=== PATIENT | female | born 1945 | race Hispanic/Latino ===

== ENCOUNTER → 2019-04-09 | Outpatient (CLI) | payer MEDICARE ==
--- NOTE | 2019-04-09 14:44 | Diagnostic Imaging Report ---
EXAMINATION: CHEST 2 VIEWS INDICATION: Pre-operative COMPARISON: None FINDINGS: LINES/TUBES:None LUNGS:The lungs are well-inflated. No focal consolidation or pulmonary edema. PLEURA:No pleural effusion or pneumothorax. MEDIASTINUM:The cardiomediastinal silhouette appears normal in size and shape. Atherosclerotic calcifications of the thoracic aorta. BONES/SOFT TISSUES:No acute osseous injury. ABDOMEN:No free air under the diaphragm. IMPRESSION: No focal pneumonia or pulmonary edema. Signed by: Milan Ardon MD on 04/09/2019 2:41 PM
== END ==
LOC: RAD 13:06
PROVIDERS: ATTEND Family Medicine
DX: Z01.818 Encounter for other preprocedural examination (principal); M17.11 Unilateral primary osteoarthritis, right knee
CPT/HCPCS: 71046; 93005

== ENCOUNTER 2019-05-21 11:01 | Observation (INO) | payer MEDICARE ==
[2019-05-19 10:51] LABS: BASOPHILS % 0.5 % (0.0-1.0); EOSINOPHILS # (AUTO) 0.1 (0.0-0.4); EOSINOPHILS % 1.1 % (0.0-6.0); HEMATOCRIT 41.2 % (34.2-44.1); HEMOGLOBIN 13.7 g/dL (12.0-16.0); LYMPHOCYTES # (AUTO) 1.8 (1.0-3.2); LYMPHOCYTES % 21.6 % (18.0-39.1); MEAN CORPUSCULAR HEMOGLOBIN 28.7 pg (28-32); MEAN CORPUSCULAR HGB CONC 33.3 g/dL (31-35); MEAN CORPUSCULAR VOLUME 86.4 fL (81-99); MONOCYTES # (AUTO) 0.8 (0.2-0.8); MONOCYTES % 9.9 % (4.4-11.3); NEUTROPHILS # (AUTO) 5.6 (2.1-6.9); NEUTROPHILS % 66.7 % (38.7-80.0); PLATELET COUNT 327 x10e3/uL (140-360); RED BLOOD COUNT 4.77 x10e6/uL (3.6-5.1); RED CELL DISTRIBUTION WIDTH 13.4 % (11.7-14.4)
[2019-05-19 10:56] LABS: BILIRUBIN,URINE NEGATIVE (NEGATIVE); CLARITY,URINE CLEAR (CLEAR); COLOR,URINE YELLOW (YELLOW); KETONES,URINE NEGATIVE (NEGATIVE); LEUKOCYTE ESTERASE ,URINE NEGATIVE (NEGATIVE); NITRITE,URINE NEGATIVE (NEGATIVE); PROTEIN,URINE DIPSTICK NEGATIVE (NEGATIVE); URINE UROBILINOGEN 0.2 mg/dL (0.2 - 1)
--- NOTE | 2019-05-19 11:17 | Diagnostic Imaging Report ---
EXAMINATION: CHEST 2 VIEWS INDICATION: Pre-operative COMPARISON: Chest 04/09/2019 FINDINGS: LINES/TUBES:None LUNGS:The lungs are well-inflated. No focal consolidation or pulmonary edema. PLEURA:No pleural effusion or pneumothorax. MEDIASTINUM:The cardiomediastinal silhouette appears unchanged in size and shape. BONES/SOFT TISSUES:No acute osseous injury. ABDOMEN:No free air under the diaphragm. IMPRESSION: No focal pneumonia or pulmonary edema. Signed by: Milan Ardon MD on 05/19/2019 11:14 AM
[2019-05-19 11:21] LABS: ANION GAP 14.4 mmol/L (8-16); BLOOD UREA NITROGEN 11 mg/dL (7-26); BUN/CREATININE RATIO 17 (6-25); CALCIUM 9.8 mg/dL (8.4-10.2); CARBON DIOXIDE 24 mmol/L (22-29); CHLORIDE 99 mmol/L (98-107); CREATININE, SERUM 0.64 mg/dL (0.57-1.11); EST GLOMERULAR FILTRATION RATE > 60 ML/MIN (60-); GLUCOSE 94 mg/dL (74-118); POTASSIUM 3.4 mmol/L (3.5-5.1); SODIUM 134 mmol/L (136-145)
--- OUTSIDE RECORDS SUMMARY | 2019-05-20 11:20 | XMS REPORT ---
Author Author [facility] Address Unknown Phone Unavailable Care Team Providers Care Aircraft Maintenance Technician Name Role Phone TAL TORRES Unavailable Unavailable MAURICIO SWANSON Unavailable Unavailable Problems This patient has no known problems. Allergies, Adverse Reactions, Alerts This patient has no known allergies or adverse reactions. Medications This patient has no known medications. Results Test Description Test Time Test Comments Text Results Atomic Results Result Comments CHEST 2 VIEWS 2019-05-19 11:13:00 [place] [address] Patient Name: JOHNNY HERNANDEZ MR #: [id number] : 1945 Age/Sex: 73/F Req #: [id number] Adm Physician: Ordered by: TAL TORRES MD Report #: [id number] Location: OR Room/Bed: Procedure: [id number] DX/CHEST 2 VIEWS Exam Date: 05/19/19 Exam Time: 1045 REPORT STATUS: Signed EXAMINATION: CHEST 2 VIEWS INDICATION: Pre-operative COMPARISON: Chest 04/09/2019 FINDINGS: LINES/TUBES:None LUNGS:The lungs are well-inflated. No focal consolidation or pulmonary edema. PLEURA:No pleural effusion or pneumothorax. MEDIASTINUM:The cardiomediastinal silhouette appears unchanged in size and shape. BONES/SOFT TISSUES:No acute osseous injury. ABDOMEN:No free air under the diaphragm. IMPRESSION: No focal pneumonia or pulmonary edema. Signed by: Rubina Valadez MD on 05/19/2019 11:14 AM Dictated By: RUBINA VALADEZ MD 13 Transcribed By: EVER on 05/19/191113 COPY TO: TAL TORRES MD CHEST 2 VIEWS 2019-04-09 14:40:00 [facility] [address] [place] [address] Patient Name: JOHNNY HERNANDEZ MR #: [id number] : 1945 Age/Sex: 73/F Req #: [id number] Adm Physician: Ordered by: MAURICIO SWANSON MD Report #: [id number] Location: [facility] Room/Bed: Procedure: [id number] DX/CHEST 2 VIEWS Exam Date: 04/09/19 Exam Time: 1340 REPORT STATUS: Signed EXAMINATION: CHEST 2 VIEWS INDICATION: Pre-operative COMPARISON: None FINDINGS: LINES/TUBES:None LUNGS:The lungs are well-inflated. No focal consolidation or pulmonary edema. PLEURA:No pleural effusion or pneumothorax. MEDIASTINUM:The cardiomediastinal silhouette appears normal in size and shape. Atherosclerotic calcifications of the thoracic aorta. BONES/SOFT TISSUES:No acute osseous injury. ABDOMEN:No free air under the diaphragm. IMPRESSION: No focal pneumonia or pulmonary edema. Signed by: Rubina Valadez MD on 04/09/2019 2:41 PM Dictated By: RUBINA VALADEZ MD 144 Transcribed By: EVER on 04/09/191440 COPY TO: MAURICIO SWANSON MD SCR [facility] BILATERAL ELVIS CAD DIGITAL 2019-03-18 09:08:46 - SCR MAMM BILATERAL ELVIS CAD DIGITALBILATERAL DIGITAL SCREENING MAMMOGRAM 3D/2D WITH CAD: 03/18/2019CLINICAL: Asymptomatic. Digital breast tomosynthesis was performed in addition to routine CC and MLO views. Current mammographic images were evaluated by either a dooyoo M-Vu or a Somewhere ImageChecker CAD (computer aided detection system). Comparison is made to exams dated 11/27/2017 mammogram - [facility]- and 05/22/2016 mammogram - [facility]. There are scattered fibroglandular tissues in both breasts. No suspicious mass, architectural distortion, malignant type calcification, or lymph node abnormality detected. Breast architecture is stable compared to prior exams.IMPRESSION: NEGATIVEThere is no mammographic evidence of malignancy. Resume annual screening mammography in one year. Tahira connolly/bellorad:03/18/2019 09:08:46 Attending Technologist: Mounika MONAE, [facility]-Imaging Technologist: Fatuma MONAE, [facility]-letter sent: BIRADS 1-2 Normal Mammogram BI-RADS: 1 Negative
[~2019-05-21] VITALS: Ht 147.3 cm; Wt 72.6 kg
[~2019-05-21 11:01] MED LIST: ACETAMINOPHEN325 M1 PO; CEFAZOLIN SOD 1 GM/NS 50ML 50 ML IV ONE; GLUCOSAMINE HC500 MG PO; HYDROCHLOROTHIA25 MG PO; LOSARTAN POTASS25 MG PO; SIMVASTATIN20 MG PO; VESICARE5 MG PO
[2019-05-21] MEDS ORDERED: CEFAZOLIN SOD 1 GM/NS 50ML 100 ML IV ONE (11:46)
[2019-05-21] MEDS ORDERED: DIPHENHYDRAMINE HCL INJ 50 MG/ML VIAL IM/IV PRN (16:00)
[2019-05-21] MEDS ORDERED: ONDANSETRON HCL INJ 2MG/ML 2ML 2 MG/ML VIAL IV PRN (16:00)
[2019-05-21] MEDS ORDERED: HYDROMORPHONE 0.2MG/ML-SOD CHL 30ML PCA SYRINGE IV PRN (16:00)
[2019-05-21] MEDS ORDERED: ACETAMINOPHEN 1000 MG/100 ML IV PRN (16:00)
[2019-05-21] MEDS ORDERED: ZOLPIDEM TARTRATE 5 MG TAB PO PRN (16:00)
[2019-05-21] MEDS ORDERED: NALOXONE HCL INJ 0.4 MG/ML AMP IV PRN (16:00)
[2019-05-21] MEDS ORDERED: LABETALOL HCL 20 ML ONE (16:05)
[2019-05-21] MEDS ORDERED: HYDROMORPHONE 2MG/ML 2 MG/ML ML ONE (16:32)
--- NOTE | 2019-05-21 16:55 | NUR ---
RECEIVED REPORT FROM TIERNEY IN PACU AWAITING FOR PT TO ARRIVE TO FLOOR
--- NOTE | 2019-05-21 16:56 | Diagnostic Imaging Report ---
Right knee, 2 views. History: Post op. Findings: Status post total right knee arthroplasty with prosthetic components in anatomic alignment. Overlying post-surgical air and skin anjelica are present. IMPRESSION: Status post right knee replacement in anatomic position. Signed by: Tiago Menjivar on 05/21/2019 4:53 PM
[2019-05-21] MEDS ORDERED: LIDOCAINE HCL 2% LOCAL INJ 5 ML SDV VIAL INJ ONE (17:15)
[2019-05-21] MEDS ORDERED: SEVOFLURANE INHAL SOLN 250 ML PEN BTL ONE (17:15)
[2019-05-21] MEDS ORDERED: DEXAMETHASONE SOD PHOS INJ 4 MG/ML VIAL ONE (17:15)
[2019-05-21] MEDS ORDERED: ONDANSETRON HCL INJ 2MG/ML 2ML 2 MG/ML VIAL ONE (17:15)
[2019-05-21] MEDS ORDERED: PROPOFOL IV EMULSION 10 MG/ML 20 ML VIAL ONE (17:15)
[2019-05-21] MEDS ORDERED: ACETAMINOPHEN 1000 MG/100 ML IV ONE (17:15)
[2019-05-21 17:17] VITALS: BP 162/78
[2019-05-21 17:23] VITALS: BP 161/72
[2019-05-21] MEDS ORDERED: ACETAMINOPHEN 1000 MG/100 ML 100 ML IV PRN (17:30)
[2019-05-21] MEDS ORDERED: LIDOCAINE 2% /EPINEPHRINE 20 ML SDV INJ ONE (17:35)
[2019-05-21] MEDS ORDERED: BUPIVACAINE 0.25% 30ML SDV INJ ONE (17:35)
[2019-05-21] MEDS ORDERED: MIDAZOLAM HCL 2 MG/2 ML VIAL ONE (17:52)
[2019-05-21] MEDS ORDERED: FENTANYL CITRATE/PF 100MCG/2 ML INJ ONE (17:52)
[2019-05-21 17:56] VITALS: BP 161/72
[2019-05-21] MEDS: SODIUM CHLORIDE 0.9% 1000ML 1,000 ML IV SCH (18:31)
[2019-05-21 19:35] VITALS: BP 111/58
[2019-05-21] MEDS: CEFAZOLIN SOD 1 GM/NS 50ML 50 ML IV SCH (22:30)
[2019-05-22] VITALS (7 sets, daily range): BP systolic 123–194; BP diastolic 56–74
[2019-05-22] MEDS: SODIUM CHLORIDE 0.9% 1000ML 1,000 ML IV SCH ×3 (01:49→11:49)
[2019-05-22] MEDS: CEFAZOLIN SOD 1 GM/NS 50ML 50 ML IV SCH ×2 (05:56→13:36)
--- NOTE | 2019-05-22 06:15 | NUR ---
PT RESTING IN BED WITH NO S/S OF DISTRESS.RESPIRATIONS EVEN/NON LABORED.PT PUT ON CPM MACHINE AT THIS TIME.FAMILY MEMBER AT BEDSIDE.BED IN LOWEST/LOCKED POSITION.CALL LIGHT WITHIN EASY REACH.
[2019-05-22 06:37] LABS: HEMATOCRIT 36.4 % (34.2-44.1); HEMOGLOBIN 11.8 g/dL (12.0-16.0)
--- NOTE | 2019-05-22 07:11 | NUR ---
REPORT GIVEN TO ONCOMING NURSE,WALKING ROUNDS MADE.PT RESTING IN BED WITH NO S/S OF DISTRESS.
[2019-05-22] MEDS ORDERED: RIVAROXABAN 10 MG TABLET PO SCH (08:00)
--- NOTE | 2019-05-22 08:33 | NUR ---
spoke to md cori anderson ok home renewal at this time
[2019-05-22] MEDS ORDERED: HYDROCHLOROTHIAZIDE 25 MG TAB PO SCH (09:00)
[2019-05-22] MEDS ORDERED: LOSARTAN POTASSIUM 25 MG TAB PO SCH (09:00)
[2019-05-22] MEDS ORDERED: SOLIFENACIN SUCCINATE 5 MG TAB PO SCH (09:00)
[2019-05-22] MEDS ORDERED: GLUCOSAMINE HCL PO SCH (09:00)
--- NOTE | 2019-05-22 11:31 | Consultation ---
DATE OF CONSULTATION: 05/22/2019 REASON FOR CONSULTATION: Postop medical management. 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 She is doing well postoperatively with minimal pain. Currently, still on a SENIOR WEB SERVICES DEVELOPER pump. She denies any fever, chills, nausea, vomiting, headache, shortness of breath, or dizziness. PAST MEDICAL HISTORY: Significant for hypertension, hyperlipidemia, urge incontinence, reflux disease. MEDICATIONS: See MAR. ALLERGIES: NONE. SOCIAL HISTORY: She is . Nonsmoker, nondrinker. FAMILY HISTORY: Diabetes and high blood pressure. PHYSICAL EXAMINATION: VITAL SIGNS: Temperature 98.8, pulse 69, blood pressure 130/60, and sats 97%. GENERAL: No apparent distress, lying in bed. NECK: Supple. CARDIOVASCULAR: Regular rate and rhythm. LUNGS: Clear to auscultation bilaterally. ABDOMEN: Good bowel sounds. Soft, nontender. EXTREMITIES: No clubbing or cyanosis. The right knee is in brace. NEURO: Nonfocal. ASSESSMENT AND PLAN: 1. Status post right knee arthroplasty with some right knee pain. Continue with physical therapy and pain control. 2. Anemia. Check CBC. 3. Reflux disease. Continue with her proton pump inhibitor once taking p.o. well. 4. Hyperlipidemia. We will start her cholesterol medicine today at home. 5. Hypertension. We will also restart her medicines at home. 6. Urge incontinence. We will restart her VESIcare while she is discharged. Please see also chart for full details. MD GREGORY Bautista/GABRIEL /[id number]
--- NOTE | 2019-05-22 13:27 | NUR ---
KENNETH REVERBERATORY SKIMMER . KAREN CHÁVEZ VERIFIED WASTE
--- NOTE | 2019-05-22 13:34 | NUR ---
SHAVER DC PER MD, PT DUE TO VOID DRESSING TO THE RIGHT KNEE CHANGED PER MD , STOCKING ON DRESSING SUPPLIES GIVEN FOR DRESSING CHANGES IV DC PRESSURE DRESSING APPLIED AND TAPED
[2019-05-22] MEDS ORDERED: XARELTO10 MG PO (13:41)
[2019-05-22] MEDS ORDERED: NORCO (13:41)
--- NOTE | 2019-05-22 14:21 | NUR ---
DISCHARGE PLANS PREARRANGED BY DARIAN AT DR TORRES OFFICE PRIOR TO SURGERY I SPOKE WITH MACARENA WHO STATES SHE ARRANGED HOME HEALTH AND HOME P.T. WITH [employer] [facility] [phone] AND 3 IN 1 AND CPM WITH [facility] AT [phone] I SPOKE WITH CUBA AT [facility] WHO CONFIRMS SHE REC'D ORDERS FOR DME AND DELIVERY SCHEDULED FOR TOMORROW SPOKE WITH [facility] WHO CONFIRMS THEY REC'D ORDERS FOR HOME HEALTH AND WILL BEGIN SERVICE TOMORROW CHOICE LETTER SIGNED BY PT AND COPY OF CHOICE LETTER GIVEN TO PT PROVIDED PT WITH RW PRIOR TO DISCHARGE SWANN EXPLAINED TO PT, SIGNED BY PT AND PLACED IN CHART COPY OF SWANN TO PT IN CARE TRANSITIONS FOLDER GAVE PT MY CARD FOR QUESTIONS/CONCERNS PLAN DC HOME TODAY
--- NOTE | 2019-05-22 15:52 | NUR ---
PT VOIDED AFTER SHAVER REMOVAL INTO TOILET
--- NOTE | 2019-05-22 16:01 | NUR ---
NOTIFIED MD MOCTEZUMA REGARDING BP OF 194/74 NEW ORDERS FOR ONE TIME ORDER OF CLONIDINE TIMES ONE RECEIVED
[2019-05-22] MEDS ORDERED: CLONIDINE HCL 0.2 MG TAB PO ONE (16:30)
--- NOTE | 2019-05-22 17:28 | NUR ---
BP NOW STABLE AT 161/65 WITH HR OF 73 PT IS READY FOR DC. PT WILL BE WHEEL CHAIR TO FRONT LOBBY
--- NOTE | 2019-05-22 17:32 | NUR ---
PT OFF UNIT TO HOME AT THIS TIME
[2019-05-22] MEDS ORDERED: SIMVASTATIN 20 MG TAB PO SCH (21:00)
--- NOTE | 2019-06-05 05:05 | Operative Report ---
DATE OF PROCEDURE: 05/21/2019 SURGEON: Edgar Landaverde MD PREOPERATIVE DIAGNOSIS: End-stage arthritis, right knee. POSTOPERATIVE DIAGNOSIS: End-stage arthritis, right knee. OPERATION/PROCEDURE PERFORMED: The patient underwent a right total knee arthroplasty using the Chiara flex knee system with a size C femoral component, a size three tibial component, a size 17 tibial insert and a size 32 mm patella button. RETAIL SERVICE LEAD MERCHANDISER: Saray Quan. ANESTHESIA: General endotracheal intubation anesthesia. IV FLUIDS: Per the anesthesia record. BRIEF DESCRIPTION OF THE PATIENT'S OPERATIVE PROCEDURE: Ms. Chavarria was taken to the operating room, placed in supine position on the operating table. Following induction of general anesthesia as well as endotracheal intubation, the patient's left lower extremity was examined under anesthesia. She was found to have full passive range of motion of the left knee joint. There was patellofemoral crepitus. The patient has varus alignment to her lower extremity at the level of the knee. The patient's lower extremity was prepped and draped in standard surgical fashion. The case was begun by creating incision along the long axis of the lower extremity. This incision was begun proximal to the patella and extending distally to just beyond the tibial tubercle. This incision was carried through the skin, subcutaneous tissues to the level of the extensor mechanism. Full-thickness skin flaps were elevated medially and laterally to expose the extensor mechanism for the knee. The extensor mechanism was then incised along its medial border through the entirety of the incision. The patella was everted laterally and osteophytes were removed from the patella, femoral and tibial surfaces. The anterior horns of the medial and lateral meniscus were resected at this time. The patella was then measured for later reaming. The knee was placed in flexion and the anterior posterior cruciate ligaments were sacrificed at this time. The five in one cutting block was then affixed to the femur. The femoral cuts were performed at this time. The intercondylar notch cutting block was then affixed to the femur and the intercondylar notch cut was performed. The finishing block was affixed to the femur and the posterior chamfer cut was performed at this time. The external tibial alignment guide was affixed to the tibia and adjusted appropriately. The posterior knee retractor was also added to the knee to protect the posterior neurovascular bundle. The proximal tibia was then cut. The keel cutting device was then used to provide the keel cut for the tibia. The trial femoral and tibial components were inserted into the knee and the soft tissues were balanced. Trial tibial inserts were then inserted into the tibial tray until the knee was balanced. The knee was placed through range of motion and found to be stable in all planes. The patella was then reamed and a patella button was affixed to the undersurface of the patella. The femoral joint was reduced and the knee was again placed through range of motion and the patella was found to track through the central portion of the knee. All trial components were then removed from the knee joint. Cement was mixed on the back table. The bony surfaces were prepared for cementation. The femoral, tibial and patellar components were then cemented into place. Once the cement had cured, the knee was again placed through range of motion and found to be stable. The tourniquet was deflated and hemostasis was obtained. The extensor mechanism was repaired with nonabsorbable suture in a [id number] fashion. The remaining soft tissues were closed in a multilayer fashion. Sterile dressings were applied. The patient was then awakened and taken to postanesthesia care unit in stable condition. Saray Quan acted as hearing and speech assistant for this case and was necessary for the prepping and draping of the patient as well as retraction of soft tissues to allow this case to be successful. MD BHAVANA Abad/GABRIEL /[id number]
== END 2019-05-22 17:32 | disposition home health service (06) ==
LOC: OR 11:01 → PACU V 15:54 → MED/SURG 17:05
PROVIDERS: ADMIT Specialist; ATTEND Specialist
DX: M17.11 Unilateral primary osteoarthritis, right knee (principal); Z01.812 Encounter for preprocedural laboratory examination; M19.90 Unspecified osteoarthritis, unspecified site; I10 Essential (primary) hypertension; Z82.61 Family history of arthritis; Z83.3 Family history of diabetes mellitus; Z82.49 Family history of ischemic heart disease and other diseases of the circulatory system; Z80.9 Family history of malignant neoplasm, unspecified; K21.9 Gastro-esophageal reflux disease without esophagitis; D64.9 Anemia, unspecified; E78.5 Hyperlipidemia, unspecified; N39.41 Urge incontinence
CPT/HCPCS: 27447; 36415 ×2; 71046; 73560; 80048; 81003; 85014; 85018; 85025; 93005; 97110; 97112; 97116; 97162; 97530 ×2; C1713 ×3; C1776 ×2; G0378 ×2; J0131; J0690 ×3; J1100; J1170; J2001 ×2; J2250; J2405; J2704; J3010; J3490; J7030 ×2